=== PATIENT | male | born 1985 | race Caucasian/White ===

== ENCOUNTER 2016-11-01 04:52 | Emergency (ER) | payer MEDICAID ==
[~2016-11-01] VITALS: Ht 160 cm; Wt 55.3 kg
[2016-11-01] MEDS ORDERED: SERT50TA9 (05:02)
[2016-11-01] MEDS ORDERED: POTA25TA6 (05:02)
[2016-11-01] MEDS ORDERED: LIDOCAINE/EPI 1%-1:100,000 (XYLOCAINE) 20ML ONE (05:02)
[2016-11-01] MEDS ORDERED: MYCO500T3 (05:02)
[2016-11-01] MEDS ORDERED: TACR1CAP8 (05:02)
[2016-11-01] MEDS ORDERED: MULT1TAB69 (05:02)
[2016-11-01] MEDS ORDERED: TETANUS,DIPTH,PERTUSS P/F (BOOSTRIX) 0.5 ML VIAL IM ONE ×2 (05:02→05:15)
--- NOTE | 2016-11-01 05:12 | ED Head Injury ---
General Chief Complaint: Laceration Stated Complaint: FALL IN SHOWER HEAD INJ Nursing Triage Note: patient reports he fell in the shower about midnight, denies LOC or neck pain. Source: patient, family (DAD) History of Present Illness Time seen by provider: 04:57 Initial Comments PT ARRIVES VIA POV WITH FATHER PT STATES HE SLIPPED IN THE SHOWER AND HIT THE BACK OF HIS HEAD--OCCURRED AROUND MIDNIGHT AT HIS HOUSE NO LOSS OF CONSCIOUSNESS NO HEADACHE NO NECK OR BACK PAIN NO VISION CHANGES NO NAUSEA/VOMITING NO PARESTHESIAS OR MOTOR DEFICITS HAS LACERATION TO BACK OF HEAD Allergies and Home Medications Allergies Coded Allergies: Penicillins (Verified Allergy, Unknown, 11/01/16) Home Medications Multivitamin 1 Each Tablet, #28 (Reported) Mycophenolate Mofetil 500 Mg Tablet, #56 (Reported) Potassium Bicarbonate/Cit AC 25 Meq Tablet.eff, #28 (Reported) Sertraline HCl 50 Mg Tablet, #28 (Reported) Tacrolimus 1 Mg Capsule, #56 (Reported) Constitutional: no symptoms reported Eyes: No Symptoms Reported Ears, Nose, Mouth, Throat: no symptoms reported Respiratory: no symptoms reported Cardiovascular: no symptoms reported Gastrointestinal: no symptoms reported Genitourinary: no symptoms reported Musculoskeletal: no symptoms reported Skin: see HPI Psychiatric/Neurological: No Symptoms Reported Endocrine: No Symptoms Reported Hematologic/Lymphatic: No Symptoms Reported Past Roroxnk-Chphbf-Oxrxav Hx Patient Social History Alcohol Use: Denies Use Recreational Drug Use: No Smoking Status: Never a Smoker Recent Foreign Travel: No Contact w/Someone Who Travel: No Recent Infectious Disease Expo: No Immunizations Up To Date Tetanus Booster (TDap): Unknown Seasonal Allergies Seasonal Allergies: No Surgeries HX Surgeries: Yes (36 SURGERIES--LIVER AND RENAL TRANSPLANT; 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 -WITH PLATE IN HEAD) Surgeries: Kidney Transplant, Liver Transplant, Vascular Surgery Cardiovascular Hx Cardiac Disorders: Yes (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) Neurological Hx Neurological Disorders: Yes (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/SURGERIES) Neurological Disorders: Developmental Disorder, Stroke Genitourinary Hx Genitourinary Disorders: Yes (RENAL TRANSPLANTS) Genitourinary Disorders: Renal Failure Gastrointestinal Hx Gastrointestinal Disorders: Yes (LIVER TRANSPLANT) Musculoskeletal Hx Musculoskeletal Disorders: No Endocrine Hx Endocrine Disorders: No HEENT HX ENT Disorders: Yes (GLASSES) Physical Exam Vital Signs Vital Sign - Last 12Hours 11/01/16 04:59 Temp 98.2 Pulse 88 Resp 18 B/P (MAP) 129/52 Pulse Ox 98 Capillary Refill : Less Than 3 Seconds General Appearance: WD/WN, no apparent distress HEENT: other (LACERATION TO RIGHT OCCIPUT) Neck: non-tender, full range of motion, supple, normal inspection Psychiatric: alert, oriented x 3 Crainal Nerves: normal speech Coordination/Gait: normal gait Skin: normal color, warm/dry, other (SCALP LACERATION) Laceration Repair : Wound Location: Scalp Other Wound Location RIGHT OCCIPUT Wound Length (cm): 2 Wound's Depth, Shape: linear, sub Q Wound Explored: clean Anesthesia: Lidocaine w/ Epi (2%) Staple Repair: Stapler Skin Precise (#4 LILI PLACED) Progress/Results/Core Measures Results/Orders My Orders Orders - ORTEGA DENISE DO Lidocaine/Epi 2% 1:100,000 (Xylocaine/Ep (11/01/16 05:15) Dipht,Pertuss(Acell),Tet Adult (Boostrix (11/01/16 05:15) Lidocaine/Epi 1% 1:100,000 (Xylocaine /E (11/01/16 05:02) Dipht,Pertuss(Acell),Tet Adult (Boostrix (11/01/16 05:02) Medications Given in ED Current Medications Medications Dose Ordered Sig/Robert Route Start Time Stop Time Status Last Admin Dose Admin Diphtheria/ Tetanus/Acell Pertussis 0.5 ml ONCE ONCE IM 11/01/16 05:15 11/01/16 05:16 11/01/16 05:07 0.5 ML Lidocaine/ Epinephrine 20 ml STK-MED ONCE .ROUTE 11/01/16 05:02 11/01/16 05:06 DC 11/01/16 05:07 20 ML Vital Signs/I&O Vital Sign - Last 12Hours 11/01/16 04:59 Temp 98.2 Pulse 88 Resp 18 B/P (MAP) 129/52 Pulse Ox 98 Blood Pressure Mean: 77 Departure Impression Impression: Primary Impression: Occipital scalp laceration Additional Impressions: Mwlfvnnkaj-lswuokkza-[id number] (DPT) vaccination administered at current visit Minor head injury without loss of consciousness Disposition: 01 HOME, SELF-CARE Condition: Stable Departure-Patient Inst. Referrals: NO,LOCAL PHYSICIAN (PCP) Primary Care Physician CHEYENNE CLIFTON (Family) Primary Care Physician Patient Instructions: Diphtheria and Tetanus Toxoids, and Acellular Pertussis Vaccine, Laceration Repair With [place] (DC), Minor Head Injury (DC) Add. Discharge Instructions: CLEAN WOUND TWICE A DAY WITH ANTIBACTERIAL SOAP AND WATER, OTHERWISE KEEP CLEAN AND DRY TYLENOL NEEDED FOR PAIN LILI OUT IN 7-10 DAYS--RETURN TO ER FOR REMOVAL All discharge instructions reviewed with patient and/or family. Voiced understanding. ORTEGA DENISE DO November 01, 2016 05:12
[2016-11-01] MEDS ORDERED: LIDOCAINE/EPI 2% 1:100,00 (XYLOCAINE) 20 ML VIAL INJ ONE (05:15)
[2016-11-01 05:16] VITALS: BP 129/52
== END 2016-11-01 05:16 | disposition home or self-care (01) ==
LOC: EDUNIT# 04:52 → ER 04:56
DX: S01.01XA Laceration without foreign body of scalp, initial encounter (principal); Z23 Encounter for immunization; Z94.4 Liver transplant status; Z94.0 Kidney transplant status; W18.2XXA Fall in (into) shower or empty bathtub, initial encounter; Y92.012 Bathroom of single-family (private) house as the place of occurrence of the external cause; Y99.8 Other external cause status
CPT/HCPCS: 90471; 90715

== ENCOUNTER 2016-11-01 07:27 | Outpatient (RCR) | payer MEDICAID ==
[~2016-11-01 07:27] MED LIST: MULT1TAB69; MYCO500T3; POTA25TA6; SERT50TA9; TACR1CAP8
[2016-11-01 07:52] LABS: BASOPHILS % (AUTO) 0 % (0-10); EOSINOPHILS # (AUTO) 0.1 10^3/uL (0.0-0.3); EOSINOPHILS % (AUTO) 1 % (0-10); LYMPHOCYTES # (AUTO) 1.8 X 10^3 (1.0-4.0); LYMPHOCYTES % (AUTO) 28 % (12-44); MEAN CORPUSCULAR HEMOGLOBIN 21 PG (25-34); MEAN CORPUSCULAR HGB CONC 32 G/DL (32-36); MEAN CORPUSCULAR VOLUME 67 FL (80-99); MEAN PLATELET VOLUME 10.7 FL (7.4-10.4); MONOCYTES # (AUTO) 0.7 X 10^3 (0.0-1.0); MONOCYTES % (AUTO) 10 % (0-12); NEUTROPHILS # (AUTO) 3.9 X 10^3 (1.8-7.8); NEUTROPHILS % (AUTO) 60 % (42-75); PLATELET COUNT 154 10^3/uL (130-400); RED BLOOD COUNT 4.61 10^6/uL (4.35-5.85); RED CELL DISTRIBUTION WIDTH 15.8 % (10.0-14.5); WHITE BLOOD COUNT 6.5 10^3/uL (4.3-11.0)
[2016-11-01 08:21] LABS: ALBUMIN 4.4 G/DL (3.2-4.5); BILIRUBIN,DIRECT 0.1 MG/DL (0.0-0.3); BILIRUBIN,INDIRECT 0.5 MG/DL; BILIRUBIN,TOTAL 0.6 MG/DL (0.1-1.0); CALCIUM 9.5 MG/DL (8.5-10.1); CREATININE SERUM 2.12 MG/DL (0.60-1.30); MAGNESIUM 1.9 MG/DL (1.8-2.4); PHOSPHORUS 4.2 MG/DL (2.3-4.7); POTASSIUM 3.4 MMOL/L (3.6-5.0); TOTAL PROTEIN 7.3 G/DL (6.4-8.2)
== END 2017-01-30 | disposition home or self-care (01) ==
LOC: LAB 07:27
PROVIDERS: ATTEND Internal Medicine Nephrology
DX: Z94.0 Kidney transplant status (principal); Z79.899 Other long term (current) drug therapy
CPT/HCPCS: 36415; 80069; 80076; 80197; 82550; 82652; 82977; 83036; 83735; 84550; 85025

== ENCOUNTER 2016-11-10 16:16 | Emergency (ER) | payer MEDICAID ==
[~2016-11-10] VITALS: Ht 160 cm; Wt 55.3 kg
[2016-11-10 16:35] VITALS: BP 140/57
== END 2016-11-10 16:35 | disposition home or self-care (01) ==
LOC: EDUNIT# 16:16 → ER 16:17
DX: S01.01XD Laceration without foreign body of scalp, subsequent encounter (principal)

== ENCOUNTER 2017-01-10 07:23 | Outpatient (RCR) | payer MEDICAID ==
[2017-01-10 07:46] LABS: BASOPHILS % (AUTO) 0 % (0-10); EOSINOPHILS # (AUTO) 0.2 10^3/uL (0.0-0.3); EOSINOPHILS % (AUTO) 3 % (0-10); LYMPHOCYTES # (AUTO) 1.9 X 10^3 (1.0-4.0); LYMPHOCYTES % (AUTO) 37 % (12-44); MEAN CORPUSCULAR HEMOGLOBIN 21 PG (25-34); MEAN CORPUSCULAR HGB CONC 31 G/DL (32-36); MEAN CORPUSCULAR VOLUME 67 FL (80-99); MEAN PLATELET VOLUME 10.6 FL (7.4-10.4); MONOCYTES # (AUTO) 0.7 X 10^3 (0.0-1.0); MONOCYTES % (AUTO) 13 % (0-12); NEUTROPHILS # (AUTO) 2.4 X 10^3 (1.8-7.8); NEUTROPHILS % (AUTO) 47 % (42-75); PLATELET COUNT 122 10^3/uL (130-400); RED BLOOD COUNT 4.45 10^6/uL (4.35-5.85); RED CELL DISTRIBUTION WIDTH 16.4 % (10.0-14.5); WHITE BLOOD COUNT 5.2 10^3/uL (4.3-11.0)
[2017-01-10 08:12] LABS: ALBUMIN 3.9 GM/DL (3.2-4.5); BILIRUBIN,DIRECT 0.1 MG/DL (0.0-0.3); BILIRUBIN,INDIRECT 0.3 MG/DL; BILIRUBIN,TOTAL 0.4 MG/DL (0.1-1.0); CALCIUM 8.9 MG/DL (8.5-10.1); CREATININE SERUM 1.9 MG/DL (0.60-1.30); MAGNESIUM 1.7 MG/DL (1.8-2.4); POTASSIUM 3.2 MMOL/L (3.6-5.0); TOTAL PROTEIN 6.8 GM/DL (6.4-8.2); URIC ACID 6.8 MG/DL (2.6-7.2)
[2017-01-11 07:57] LABS: GAMMA GLUTAMYL TRANSFER (GGT) 16 U/L (0-65)
[2017-01-11 07:58] LABS: VITAMIN D 25-HYDROXY (TOTAL) 27 ng/mL (30-100)
[2017-01-13 07:15] LABS: FK506 <2.0 ng/mL
== END 2017-04-02 | disposition home or self-care (01) ==
LOC: LAB 07:23
PROVIDERS: ATTEND Internal Medicine Nephrology
DX: Z94.0 Kidney transplant status (principal); Z79.899 Other long term (current) drug therapy
CPT/HCPCS: 36415; 80069; 80076; 80197; 82306; 82550; 82652; 82977; 83036; 83735; 84550; 85025

== ENCOUNTER → 2017-07-29 | Outpatient (CLI) | payer MEDICAID ==
[2017-07-29 08:02] LABS: HEMOGLOBIN 12.3 G/DL (13.3-17.7); MEAN PLATELET VOLUME 10.5 FL (7.4-10.4); RED BLOOD COUNT 4.41 10^6/uL (4.35-5.85); RED CELL DISTRIBUTION WIDTH 14.3 % (10.0-14.5); WHITE BLOOD COUNT 5.4 10^3/uL (4.3-11.0)
[2017-07-29 08:19] LABS: ALBUMIN 3.7 GM/DL (3.2-4.5); BILIRUBIN,DIRECT 0.3 MG/DL (0.0-0.3); BILIRUBIN,INDIRECT 0.4 MG/DL; BILIRUBIN,TOTAL 0.7 MG/DL (0.1-1.0); CREATININE SERUM 1.9 MG/DL (0.60-1.30); MAGNESIUM 1.8 MG/DL (1.8-2.4); PHOSPHORUS 4.4 MG/DL (2.3-4.7); POTASSIUM 3.8 MMOL/L (3.6-5.0); TOTAL PROTEIN 6.6 GM/DL (6.4-8.2); URIC ACID 6.2 MG/DL (2.6-7.2)
== END ==
LOC: LAB 07:34
PROVIDERS: ATTEND Internal Medicine Nephrology
DX: Z51.81 Encounter for therapeutic drug level monitoring (principal); D50.9 Iron deficiency anemia, unspecified; Z94.0 Kidney transplant status; Z79.899 Other long term (current) drug therapy
CPT/HCPCS: 36415; 80069; 80076; 80197; 82043; 82306; 82550; 82977; 83036; 83735; 84550; 85027

== ENCOUNTER 2018-05-22 07:28 | Outpatient (RCR) | payer MEDICAID ==
[2018-05-22 07:49] LABS: HEMOGLOBIN 13.5 G/DL (13.3-17.7); RED CELL DISTRIBUTION WIDTH 13.2 % (10.0-14.5); WHITE BLOOD COUNT 6.9 10^3/uL (4.3-11.0)
[2018-05-22 08:06] LABS: ALBUMIN 4.2 GM/DL (3.2-4.5); BILIRUBIN,DIRECT 0.4 MG/DL (0.0-0.3); BILIRUBIN,INDIRECT 0.6 MG/DL; CALCIUM 9.4 MG/DL (8.5-10.1); CREATININE SERUM 1.95 MG/DL (0.60-1.30); MAGNESIUM 1.8 MG/DL (1.8-2.4); PHOSPHORUS 4.4 MG/DL (2.3-4.7); POTASSIUM 3.2 MMOL/L (3.6-5.0); URIC ACID 6.3 MG/DL (2.6-7.2)
== END 2018-08-20 | disposition home or self-care (01) ==
LOC: LAB 07:28
PROVIDERS: ATTEND Internal Medicine Nephrology
DX: D50.9 Iron deficiency anemia, unspecified (principal); Z94.0 Kidney transplant status; Z79.899 Other long term (current) drug therapy
CPT/HCPCS: 36415; 80069; 80076; 80197; 82550; 82652; 82977; 83036; 83735; 84550; 85027

== ENCOUNTER → 2019-01-31 | Outpatient (CLI) | payer MEDICAID ==
[2019-01-31 08:05] LABS: BASOPHILS % (AUTO) 0 % (0-10); EOSINOPHILS # (AUTO) 0.1 10^3/uL (0.0-0.3); EOSINOPHILS % (AUTO) 2 % (0-10); HEMATOCRIT 41 % (40-54); HEMOGLOBIN 13.8 G/DL (13.3-17.7); LYMPHOCYTES # (AUTO) 2.2 X 10^3 (1.0-4.0); LYMPHOCYTES % (AUTO) 34 % (12-44); MEAN CORPUSCULAR HEMOGLOBIN 27 PG (25-34); MEAN CORPUSCULAR HGB CONC 34 G/DL (32-36); MEAN CORPUSCULAR VOLUME 79 FL (80-99); MEAN PLATELET VOLUME 10.2 FL (7.4-10.4); MONOCYTES # (AUTO) 0.6 X 10^3 (0.0-1.0); MONOCYTES % (AUTO) 10 % (0-12); NEUTROPHILS # (AUTO) 3.4 X 10^3 (1.8-7.8); NEUTROPHILS % (AUTO) 54 % (42-75); PLATELET COUNT 121 10^3/uL (130-400); RED CELL DISTRIBUTION WIDTH 13.7 % (10.0-14.5); WHITE BLOOD COUNT 6.3 10^3/uL (4.3-11.0)
[2019-01-31 08:28] LABS: ALBUMIN 4.2 GM/DL (3.2-4.5); BILIRUBIN,DIRECT 0.4 MG/DL (0.0-0.3); BILIRUBIN,INDIRECT 0.5 MG/DL; BILIRUBIN,TOTAL 0.9 MG/DL (0.1-1.0); CALCIUM 9.8 MG/DL (8.5-10.1); CREATININE SERUM 2.1 MG/DL (0.60-1.30); MAGNESIUM 1.9 MG/DL (1.8-2.4); PHOSPHORUS 4.4 MG/DL (2.3-4.7); POTASSIUM 3.5 MMOL/L (3.6-5.0); TOTAL PROTEIN 7.3 GM/DL (6.4-8.2); URIC ACID 7.7 MG/DL (2.6-7.2)
[2019-02-01 14:43] LABS: FK506 4.2 ng/mL
== END ==
LOC: LAB 07:38
PROVIDERS: ATTEND Internal Medicine Nephrology
DX: Z01.89 Encounter for other specified special examinations (principal); Z94.0 Kidney transplant status; Z94.4 Liver transplant status; Z79.899 Other long term (current) drug therapy
CPT/HCPCS: 36415; 80069; 80076; 80197; 82043; 82247; 82248; 82306; 82550; 82652; 82977; 83036; 83735; 84075; 84155; 84450; 84460; 84550; 85025

== ENCOUNTER → 2019-02-16 | Outpatient (CLI) | payer OTHER ==
--- NOTE | 2019-02-16 09:13 | Diagnostic Imaging Report ---
INDICATION: Back pain. Time of exam 8:51 a.m. COMPARISON: No prior studies are available for comparison. FINDINGS: Curvature and alignment of the lumbar spine is normal. Vertebral body heights and disc spaces are well-maintained. No fracture or subluxation is seen. IMPRESSION: No acute bony abnormality is detected. Dictated by: Dictated on workstation # [id number]
== END ==
LOC: RAD 08:36
PROVIDERS: ATTEND Surgery
DX: Z02.71 Encounter for disability determination (principal); M54.5 Low back pain
CPT/HCPCS: 72100

== ENCOUNTER → 2019-08-14 | Outpatient (CLI) | payer OTHER ==
[2019-08-14 08:11] LABS: MEAN PLATELET VOLUME 10.4 FL (7.4-10.4); RED CELL DISTRIBUTION WIDTH 14.3 % (10.0-14.5); WHITE BLOOD COUNT 5.9 10^3/uL (4.3-11.0)
[2019-08-14 08:25] LABS: ALBUMIN 4.2 GM/DL (3.2-4.5); BILIRUBIN,DIRECT 0.4 MG/DL (0.0-0.3); BILIRUBIN,INDIRECT 0.5 MG/DL; BILIRUBIN,TOTAL 0.9 MG/DL (0.1-1.0); CALCIUM 9.3 MG/DL (8.5-10.1); CREATININE SERUM 1.79 MG/DL (0.60-1.30); MAGNESIUM 1.6 MG/DL (1.6-2.4); PHOSPHORUS 3.6 MG/DL (2.3-4.7); POTASSIUM 3.3 MMOL/L (3.6-5.0); TOTAL PROTEIN 7.2 GM/DL (6.4-8.2); URIC ACID 6.3 MG/DL (2.6-7.2)
[2019-08-15 02:53] LABS: FK506 4.4 ng/mL
== END ==
LOC: LAB 07:36
PROVIDERS: ATTEND Internal Medicine Nephrology
DX: Z94.0 Kidney transplant status (principal); Z94.4 Liver transplant status
CPT/HCPCS: 36415; 80069; 80076; 80197; 82043; 82247; 82248; 82306; 82550; 82652; 82977; 83036; 83735; 84075; 84155; 84450; 84460; 84550; 85027